=== PATIENT | male | born 1990 | race African-American/Black ===

== ENCOUNTER 2018-03-27 10:31 | Emergency (ER) | payer MEDICAID ==
[~2018-03-27] VITALS: Ht 167.6 cm; Wt 74.8 kg
[2018-03-27 10:51] VITALS: BP 108/49
== END 2018-03-27 12:02 | disposition home or self-care (01) ==
LOC: ER 10:31
DX: S51.051A Open bite, right elbow, initial encounter (principal); S31.815A Open bite of right buttock, initial encounter; F17.210 Nicotine dependence, cigarettes, uncomplicated; W57.XXXA Bitten or stung by nonvenomous insect and other nonvenomous arthropods, initial encounter; Y93.89 Activity, other specified; Y92.89 Other specified places as the place of occurrence of the external cause; Y99.8 Other external cause status

== ENCOUNTER 2018-07-29 15:59 | Emergency (ER) | payer MEDICAID ==
[2018-07-29 16:46] VITALS: BP 99/46
== END 2018-07-29 17:42 | disposition home or self-care (01) ==
LOC: ER 16:02
DX: S61.210A Laceration without foreign body of right index finger without damage to nail, initial encounter (principal); F17.210 Nicotine dependence, cigarettes, uncomplicated; W25.XXXA Contact with sharp glass, initial encounter; Y93.89 Activity, other specified; Y99.8 Other external cause status; Y92.89 Other specified places as the place of occurrence of the external cause
CPT/HCPCS: 12001